=== PATIENT | female | born 1965 | race Caucasian/White ===

== ENCOUNTER 2022-09-22 21:39 | Emergency (ER) | payer BC ==
[2022-09-22] MEDS ORDERED: Acetaminophen/oxyCODONE 325-5 MG Tab PO ONE (21:49)
[2022-09-22 22:39] LABS: CARBON DIOXIDE,CO2 29.5 mmol/L (21.0-32.0)
== END 2022-09-23 00:11 | disposition home or self-care (01) ==
LOC: MW.ED 21:39
DX: M79.605 Pain in left leg (principal); Z88.5 Allergy status to narcotic agent
CPT/HCPCS: 36415; 71275; 73562; 80053; 84484; 85025; 85610; 85730; 93971; 99284; A9270; 93005